=== PATIENT | female | born 1945 ===

== ENCOUNTER 2018-10-18 00:46 | Inpatient (IN) | payer MEDICARE ==
[2018-10-17 14:41] LABS: INR 0.98
--- NOTE | 2018-10-17 15:13 | RADIOLOGY IMAGING REPORT ---
FACILITY: [facility] - [place] PATIENT NAME: Roxi Stephens : 1945 MR: [id number] V: [id number] EXAM DATE: ORDERING PHYSICIAN: MAINOR ALVAREZ TECHNOLOGIST: Location: [facility] Patient: Roxi Stephens : 1945 Visit/Account:[id number] Date of Sevice: 10/10/2018 XR KNEES BILAT AP STANDING, LEGS BILAT STANDING HIPS-ANKLE HISTORY: Bilateral legs. Status post right knee replacement. COMPARISON: No prior films available for comparison. FINDINGS: Right side: Note that the right hip and right iliac crest are both higher than their counterparts on the left side. There are findings of diffuse joint space narrowing with subchondral sclerosis involving the superior portion of the right hip joint consistent with osteoarthrosis. There is been a right total knee replacement. Surgical screws are noted in the distal tibia and media l malleolus. Left side: There are findings of superolateral joint space narrowed subchondral sclerosis involving t he left hip consistent with osteoarthrosis. Tricompartment joint space narrowing involving the left hip is most prominent in the medial joint spa ce compartment where there is also subchondral cirrhosis and bony proliferation. There is a resultant varus deformity. IMPRESSION: 1. The right hip and right iliac crest are elevated with respect to those on the left side. 2. Status post right total knee replacement. 3. Osteoarthrosis of the hips bilaterally that is moderate in degree. 4. Prominent tricompartment osteoarthrosis of the left knee most prominent in the medial joint space compartment with a resultant varus deformity. Report Dictated By: Minor Weber MD at 10/17/2018 3:03 PM Report E-Signed By: Minor Weber MD at 10/17/2018 3:05 PM WSN:[id number]
--- NOTE | 2018-10-17 15:15 | RADIOLOGY IMAGING REPORT ---
[facility] PATIENT NAME: Roxi Stephens : 1945 MR: [id number] V: [id number] EXAM DATE: ORDERING PHYSICIAN: MAINOR ALVAREZ TECHNOLOGIST: Location: Patient: Roxi Stephens : 1945 Visit/Account:[id number] Date of Sevice: 10/17/2018 XR KNEES BILAT AP STANDING, LEGS BILAT STANDING HIPS-ANKLE HISTORY: Bilateral legs. Status post right knee replacement. COMPARISON: No prior films available for comparison. FINDINGS: Right side: Note that the right hip and right iliac crest are both higher than their counterparts on the left side. There are findings of diffuse joint space narrowing with subchondral sclerosis involving the superior portion of the right hip joint consistent with osteoarthrosis. There is been a right total knee replacement. Surgical screws are noted in the distal tibia and media l malleolus. Left side: There are findings of superolateral joint space narrowed subchondral sclerosis involving t he left hip consistent with osteoarthrosis. Tricompartment joint space narrowing involving the left hip is most prominent in the medial joint spa ce compartment where there is also subchondral cirrhosis and bony proliferation. There is a resultant varus deformity. IMPRESSION: 1. The right hip and right iliac crest are elevated with respect to those on the left side. 2. Status post right total knee replacement. 3. Osteoarthrosis of the hips bilaterally that is moderate in degree. 4. Prominent tricompartment osteoarthrosis of the left knee most prominent in the medial joint space compartment with a resultant varus deformity. Report Dictated By: Minor Weber MD at 10/17/2018 3:03 PM Report E-Signed By: Minor Weber MD at 10/17/2018 3:05 PM WSN:[id number]
[2018-10-18] VITALS (11 sets, daily range): BP systolic 110–131; BP diastolic 61–74
[~2018-10-18] VITALS: Ht 149.9 cm; Wt 68.9 kg
[~2018-10-18 00:46] MED LIST: ACET500T68 PO; ALB6.7R INH; ATOR20TA22 PO; CALC500T6 PO; GABA-549 PO; LOSA25TA57 PO; MELO7.5O3 PO; METF-450 PO
[2018-10-18] MEDS ORDERED: PROPOFOL EMUL(*) 10MG/ML 20 ML 20 ML ONE (10:47)
[2018-10-18] MEDS ORDERED: fentaNYL CITR 100 MCG/2 ML AMP ONE ×3 (10:47→16:30)
[2018-10-18] MEDS ORDERED: DEXAMETHASONE SOD PHOS 10MG/ML ONE (10:47)
[2018-10-18] MEDS ORDERED: ONDANSETRON 4 MG/2 ML VIAL ONE (10:47)
[2018-10-18] MEDS ORDERED: LIDOCAINE 2% IV 100 MG/5ML SYR ONE (10:48)
[2018-10-18] MEDS ORDERED: NORMOSOL R SOLN(*) 1000 ML BAG 1,000 ML IV PRN (11:50)
[2018-10-18] MEDS ORDERED: ACETAMINOPHEN 500 MG TAB PO ONE (11:50)
[2018-10-18] MEDS ORDERED: VANCOMYCIN(*) 1 GM VIAL 1 GM in NS(*) 0.9% 250 ML BAG 250 ML IVPB ONE (11:50)
[2018-10-18] MEDS ORDERED: MIDAZOLAM 2 MG/2 ML VIAL IVP PRN (11:50)
[2018-10-18] MEDS ORDERED: FAMOTIDINE 20 MG TAB PO ONE (11:50)
[2018-10-18] MEDS ORDERED: ROPIVACAINE/EPI/CLONIDINE/KET 50 ML SYRINGE INJ ONE (11:50)
[2018-10-18] MEDS ORDERED: LIDOCAINE/SOD BICARB 8.4% SYR ID ONE (11:50)
[2018-10-18] MEDS ORDERED: TRANEXAMIC AC 1000 MG/10ML SDV 1,000 MG in DEXTROSE 5% 50 ML BAG 50 ML IV ONE (11:50)
[2018-10-18] MEDS ORDERED: PREGABALIN 75 MG CAPSULE PO ONE (11:50)
[2018-10-18] MEDS ORDERED: LACTATED RINGER 3000 ML BAG IR ONE (15:32)
[2018-10-18] MEDS ORDERED: diphenhydrAMINE 25 MG CAP PO PRN (16:30)
[2018-10-18] MEDS ORDERED: MAGNESIUM CITRATE 300 ML BTL PO PRN (16:30)
[2018-10-18] MEDS ORDERED: MORPHINE 50 MG/50 ML PCA BAG IV PRN (16:30)
[2018-10-18] MEDS ORDERED: PROMETHAZINE 25 MG/ML 1 ML AMP IVP PRN (16:30)
[2018-10-18] MEDS ORDERED: KCL/D5LR 20 MEQ/1000 ML PREMIX 1,000 ML IV PRN (16:30)
[2018-10-18] MEDS ORDERED: NALOXONE HCL 0.4 MG/ML VIAL IVP PRN (16:30)
[2018-10-18] MEDS ORDERED: ACETAMINOPHEN 500 MG TAB PO PRN (16:30)
[2018-10-18] MEDS ORDERED: FLUSH 10 ML SYR IVP PRN (16:30)
[2018-10-18] MEDS ORDERED: GABA-547 PO (17:51)
[2018-10-18] MEDS ORDERED: DULO30CA35 PO (17:51)
[2018-10-18] MEDS ORDERED: TIMO5DRO3 OU (17:53)
[2018-10-18] MEDS ORDERED: LATA1OIL OU (17:53)
--- NOTE | 2018-10-18 18:05 | NUR ---
Physical Therapy Impression PT subjective eval completed with goal setting. Pt declines mobility at this time, noting that she is uncomfortable and has not yet received pain medication. Discussed option of CPM. Actual orders written state: as needed if placement supported by diagnosis code. Contacted [employer] supplier who indicates that they have not yet attempted to bill Medicare for a CPM for a unicompartmental knee and are unsure if this is covered. CPM device offered to pt with the understanding that it may not be covered by insurance. Pt noted that she did not feel she would need the CPM and declines it at time of eval. Pt encouraged to attempt ambulation to/from BR with nursing later this evening and PT mobility training will take place in am. Physical Therapy Goals 1. Pt to be modified indep with bed mobility and supine to/from sit trnsfr 2. Pt to be modified indep with sit to/from stand transfers 3. Pt to tolerate ambulation x 100' with least restrictive device; Mod I 4. Pt to complete up/down platform step with rail to simulate home entry Patient's Goals
[2018-10-18] MEDS ORDERED: INSULIN HUM LISPRO 100 UN/ML 3 ML VIAL SUBQ PRN (18:40)
[2018-10-18] MEDS ORDERED: ALBUTEROL 2.5 MG/3 ML NEB NEB PRN (18:40)
--- NOTE | 2018-10-18 18:52 | Hospitalist Progress Note ---
Subjective Progress Notes Subjective No cp/sob. 30cc EBL. 1200cc of crystalloid, TXA, dexamethasone, ephedrine and phenylephrine given intra-op. Physical Exam Vital Signs Date Time Temp Pulse Resp B/P (MAP) Pulse Ox O2 Delivery O2 Flow Rate FiO2 10/18/18 17:40 97.7 75 12 127/65 (85) 97 Nasal Cannula 3.0 General Appearance: Alert, Awake, No Acute Distress Cardiovascular: Regular Rate and Rhythm Respiratory: Clear to Auscultation Extremities: No Edema Result Diagram: 10/18/18 2452 Assessment and Plan Problems: (1) Status post unicompartmental knee replacement Status: Acute Assessment & Plan: Left sided. No CV/pulmonary issues. No history of DVT/PE, so will use ASA 325mg a day for 30 days after surgery for blood clot prevention. (2) HTN (hypertension) Status: Chronic Assessment & Plan: Continue chronic Cozaar with parameters. (3) T2DM (type 2 diabetes mellitus) Status: Chronic Assessment & Plan: Hold metformin secondary to recent surgery. AC and HS glucose with SSI level 2 to cover. (4) Asthma Status: Chronic Assessment & Plan: Lungs are clear. Albuterol prn. (5) Hyperlipemia Status: Chronic Assessment & Plan: Continue chronic atorvastatin. (6) Glaucoma Status: Chronic Assessment & Plan: Continue chronic latanoprost and timolol drops bilaterally. (7) Diabetic peripheral neuropathy Status: Chronic Assessment & Plan: Continue chronic gabapentin and Cymbalta. JAYDEN WALLS MD Oct 18, 2018 18:52
--- NOTE | 2018-10-18 20:25 | RADIOLOGY IMAGING REPORT ---
FACILITY: [facility] - [place] PATIENT NAME: Roxi Stephens : 1945 MR: [id number] V: [id number] EXAM DATE: ORDERING PHYSICIAN: MAINOR ALVAREZ TECHNOLOGIST: Location: [facility] [place] Patient: Roxi Stephens : 1945 Visit/Account:[id number] Date of Sevice: 10/18/2018 KNEE LIMITED LEFT HISTORY: POST OP LEFT UNICOMPARTMENTAL KNEE ARTHROPLASTY FINDINGS: TWO-VIEW EXAMINATION OF THE LEFT KNEE DEMONSTRATES POSTOP LEFT HEMIARTHROPLASTY WITH WELL-POSITIONED MEDIAL FEMORAL CONDYLE AND MEDIAL LATERAL TIBIAL PLATEAU COMPONENTS. THE LEFT LATERAL FILM DEMONSTRAT ES AN OVERLAPPING RIGHT KNEE ARTHROPLASTY SUPERIMPOSED OVER THE POSTOPERATIVE CHANGE IN THE LEFT KNEE . THERE IS NO LEFT KNEE JOINT EFFUSION. IMPRESSION: Postoperative changes of the left knee as described. Report Dictated By: Keegan Gibson MD at 10/18/2018 8:16 PM Report E-Signed By: Keegan Gibson MD at 10/18/2018 8:18 PM WSN:[id number]
[2018-10-18] MEDS ORDERED: ATORVASTATIN 10 MG TAB PO SCH (21:00)
[2018-10-18] MEDS ORDERED: LATANOPRO 0.005% OP SOLN 2.5ML OU SCH (21:00)
[2018-10-18] MEDS: ONDANSETRON 4 MG/2 ML VIAL IVP PRN (22:04)
[2018-10-18] MEDS: GABAPENTIN 100 MG CAP PO SCH (22:08)
[2018-10-18] MEDS: oxyCODON/ACET (*)5/325MG (CII) 1 TAB TAB PO PRN (22:09)
[2018-10-19] VITALS (9 sets, daily range): BP systolic 89–149; BP diastolic 54–84; Ht 149.9 cm; Wt 68.9 kg
[2018-10-19] MEDS: ONDANSETRON 4 MG/2 ML VIAL IVP PRN ×2 (02:48→15:50)
[2018-10-19] MEDS: oxyCODON/ACET (*)5/325MG (CII) 1 TAB TAB PO PRN (02:49)
[2018-10-19 06:58] LABS: PLATELET COUNT, AUTOMATED 339 K/uL (150-450)
--- NOTE | 2018-10-19 08:22 | RADIOLOGY IMAGING REPORT ---
FACILITY: [facility] PATIENT NAME: Roxi Stephens : 1945 MR: [id number] V: [id number] EXAM DATE: ORDERING PHYSICIAN: MAINOR ALVAREZ TECHNOLOGIST: Location: [facility] [place] Patient: Roxi Stephens : 1945 Visit/Account:[id number] Date of Sevice: 10/19/2018 LEFT KNEE: Indication: Postop evaluation. Technique: 2 views of the knee were obtained. Comparison: 10/18/2018 Findings: The femoral and tibial prosthetic components on the medial aspect of the joint appear intac t and unchanged. The skeletal structures are in satisfactory alignment. There are no signs of occult fracture. There is a small amount of residual air in the periarticular soft tissues. IMPRESSION: Stable postoperative appearance. Report Dictated By: Manuel Love MD at 10/19/2018 8:11 AM Report E-Signed By: Manuel Love MD at 10/19/2018 8:14 AM WSN:[id number]
[2018-10-19] MEDS ORDERED: LOSARTAN POTASSIUM 50 MG TAB PO SCH (09:00)
[2018-10-19] MEDS ORDERED: ASPIRIN 325 MG ENTERIC COATED PO SCH (09:00)
[2018-10-19] MEDS ORDERED: TIMOLOL MAL 0.25% OP SOLN 5 ML OU SCH (09:00)
[2018-10-19] MEDS ORDERED: DULoxetine HCL 20 MG CAPCR PO SCH (09:00)
--- NOTE | 2018-10-19 10:28 | Hospitalist Progress Note ---
Subjective Progress Notes Subjective No acute events overnight. She has had minimal pain post-operatively. She is getting up and working with PT/OT. She is on Aspirin for anticoagulation. She is medically ready for DC when cleared by PT and Surgery. Patient Complains of: Neurological: No: Confusion, Weakness Cardiovascular: No: Palpitations Respiratory: No: Congestion, Shortness of Breath Gastrointestinal: No Nausea, No Vomiting Physical Exam Vital Signs Date Time Temp Pulse Resp B/P (MAP) Pulse Ox O2 Delivery O2 Flow Rate FiO2 10/19/18 07:52 97.8 72 16 142/80 (100) 93 Nasal Cannula 1.0 Intake and Output 10/19/18 01:03 Intake Total 1890 ml Output Total 100 ml Balance 1790 ml Intake Oral 490 ml IV Total 1400 ml Output Emesis 100 ml # Voids 1 # Bowel Movements 0 # Emeses 3 General Appearance: Alert, Awake, No Acute Distress Neuro: No Gross deficits Cardiovascular: Regular Rate and Rhythm Respiratory: No Respiratory Distress Extremities: Soft and Non Tender Result Diagram: 10/19/18 0621 Assessment and Plan Problems: (1) Status post unicompartmental knee replacement Status: Acute Assessment & Plan: Surgical replacement by Dr. Alvarez. Left sided. No CV/pulmonary issues. No history of DVT/PE, so will use ASA 325mg a day for 30 days after surgery for blood clot prevention. Pain management per Ortho. PT/OT are seeing her. She is medically appropriate for discharge when cleared by PT and surgery. (2) HTN (hypertension) Status: Chronic Assessment & Plan: Continue chronic Cozaar with parameters. (3) T2DM (type 2 diabetes mellitus) Status: Chronic Assessment & Plan: Hold metformin secondary to recent surgery. AC and HS glucose with SSI level 2 to cover. When appropriate for discharge will transition back to chronic metformin dose for home use. (4) Asthma Status: Chronic Assessment & Plan: Lungs are clear. Albuterol prn. (5) Hyperlipemia Status: Chronic Assessment & Plan: Continue chronic atorvastatin. (6) Glaucoma Status: Chronic Assessment & Plan: Continue chronic latanoprost and timolol drops bilaterally. (7) Diabetic peripheral neuropathy Status: Chronic Assessment & Plan: Continue chronic gabapentin and Cymbalta. Copies to: MAINOR ALVAREZ MD ; Exam Sepsis Risk: No Definite Risk MAINOR ASHLEY Oct 19, 2018 10:28
--- NOTE | 2018-10-19 11:30 | NUR ---
Attempted to see patient x 3 attempts this am. This am patient had decreased blood pressure and increased nausea and dizziness and nursing wanted me to wait until late morning went in patient sound asleep will attempt to see after lunch. Morning therapy session was missed. Kayla Al, BATTERY INSTALLER
[2018-10-19] MEDS ORDERED: APAP/HYDROCODONE 325/5 TAB PO PRN (13:30)
[2018-10-19] MEDS ORDERED: PROMETHAZINE 25 MG/ML 1 ML AMP IVP PRN (13:30)
--- NOTE | 2018-10-19 13:30 | NUR ---
Physical Therapy Impression Patient presents in bed asleep and awakens with touch. Patient is agreeable to therapy. Patient instructed in therapeutic exercises on left LE including ankle pumps, quad and glute sets, SAQ, and heel slides all times 10 reps with verbal and tactile cues. Patient was I with bed mobility and SBA with STS transfer from bed. Patient instructed in gait training with FWW with cuing for posture and increased biibana and to lessen toll repairer central office in B hands. Patient ambulated 300 feet with a seated rest break to be pushed in w/c to gym for stair training. Patient ascended and descended 4 stairs in gym with railing on both sides with SBA and cuing for sequencing and technique. Patient has 2 steps to get into home. Patient demonstrated safe technique with stairs. Patient was on 1L of oxygen throughout therapy and stayed above 93%. Patient has met all goals and is safe to d/c home to OP PT. Patient lives alone but her niece lives nearby and will help her at home. Patient was left in bed with rails up no oxygen with ice pack on knee. Physical Therapy Goals 1. Pt to be modified indep with bed mobility and supine to/from sit trnsfr 2. Pt to be modified indep with sit to/from stand transfers 3. Pt to tolerate ambulation x 100' with least restrictive device; Mod I 4. Pt to complete up/down platform step with rail to simulate home entry Patient's Goals
[2018-10-19] MEDS: GABAPENTIN 100 MG CAP PO SCH (14:19)
[2018-10-19] MEDS ORDERED: ASPI-757 PO (14:44)
[2018-10-19] MEDS ORDERED: HYDR-6015 PO (15:24)
== END 2018-10-19 16:20 | disposition home or self-care (01) | DRG 470 ==
LOC: OR 00:46 → MED 17:30
PROVIDERS: ADMIT Orthopaedic Surgery Hand Surgery; ATTEND Orthopaedic Surgery Hand Surgery
PROC: 0SRD0L9 Replacement of Left Knee Joint with Medial Unicondylar Synthetic Substitute, Cemented, Open Approach (ICD-10-PCS; principal; 2018-10-18 13:28)
DX: M17.12 Unilateral primary osteoarthritis, left knee (principal); I10 Essential (primary) hypertension; E11.40 Type 2 diabetes mellitus with diabetic neuropathy, unspecified; E11.65 Type 2 diabetes mellitus with hyperglycemia; Z79.84 Long term (current) use of oral hypoglycemic drugs; E78.5 Hyperlipidemia, unspecified; H40.9 Unspecified glaucoma; J45.909 Unspecified asthma, uncomplicated
CPT/HCPCS: 36415; 36416; 77073; 82948; 85014; 85018; 85025; 85610; 86850; 86900; 86901; 97161; C1713; C1776; J1100; J2001; J2250; J2405; J2550; J2704; J3010; J3370; J7050; J7060